=== PATIENT | male | born 1955 | race Caucasian/White ===

== ENCOUNTER 2024-02-14 07:41 | Day surgery (SDC) | payer MEDICARE, OTHER ==
[2024-02-14] MEDS ORDERED: MARCAINE 0.25% PF/ EPI 1:200,000 IJ ONE (07:42)
[2024-02-14] MEDS ORDERED: CEFAZOLIN 2 GM/100 ML NaCl 2 GM/100 ML IVPB IV ONE (07:50)
[2024-02-14] MEDS ORDERED: Lactated Ringers 1,000 ML IV ONE (07:51)
[2024-02-14] MEDS ORDERED: Decadron 4 MG ONE (07:51)
[2024-02-14] MEDS ORDERED: NEURONTIN ONE (07:51)
[2024-02-14] MEDS ORDERED: TYLENOL EXTRA STRENGTH 500 MG ONE (07:51)
[2024-02-14] MEDS ORDERED: celeBREX 100 MG ONE (07:51)
[2024-02-14] MEDS: CEFAZOLIN 2 GM/100 ML NaCl 2 GM/100 ML IVPB IV SCH (07:59)
[2024-02-14] MEDS: Lactated Ringers 1,000 ML IV SCH (07:59)
[2024-02-14] MEDS: NEURONTIN PO ONE (08:00)
[2024-02-14] MEDS: TYLENOL EXTRA STRENGTH 500 MG PO ONE (08:00)
[2024-02-14] MEDS: Decadron 4 MG PO ONE (08:00)
[2024-02-14] MEDS: celeBREX 100 MG PO ONE (08:01)
[2024-02-14 08:11] VITALS: RESP 16
[2024-02-14] MEDS ORDERED: Sensorcaine 0.25% 10 ML ONE (09:02)
[2024-02-14] MEDS ORDERED: MARCAINE 0.5%-EPI 1:200,000 VL IJ ONE (09:02)
[2024-02-14] MEDS ORDERED: ROCURONIUM BROMIDE IV ONE (09:57)
[2024-02-14] MEDS ORDERED: DIPRIVAN 200 MG/20 ML IV ONE (09:57)
[2024-02-14] MEDS ORDERED: Versed 2 MG/2 ML Injection ONE (09:58)
[2024-02-14] MEDS ORDERED: SUBLIMAZE 100 MCG/2 ML ONE (09:58)
[2024-02-14] MEDS ORDERED: BREVIBLOC 100 MG/10 ML IV ONE (10:16)
[2024-02-14] MEDS ORDERED: BRIDION 200MG/2ML IV ONE (10:56)
[2024-02-14] MEDS ORDERED: NORCO 5/325 MG ONE (12:26)
[2024-02-14] MEDS: NORCO 5/325 MG PO PRN (12:28)
[2024-02-14 12:49] VITALS: BP 137/87; PULSE 76; TEMP 97.8; O2SAT 96
--- NOTE | 2024-02-15 08:26 | OP ---
SURGERY DATE/TIME: 02/14/2024 0890 - 3120 PREOPERATIVE DIAGNOSIS: Torn right medial and lateral menisci. POSTOPERATIVE DIAGNOSIS: Torn right medial and lateral menisci. PROCEDURE: Arthroscopy of the right knee with partial medial and lateral meniscectomies. SURGEON: John Mcclellan II, ANESTHESIA: General. DESCRIPTION OF PROCEDURE AND FINDINGS: The patient was identified and informed consent was obtained. The patient was taken to the operative suite and placed into the supine position on the operating table where the general anesthetic was administered. Once an appropriate level of anesthesia had been obtained, a tourniquet was placed high on the right thigh. The right lower extremity was placed in a knee louie and prepped and draped in the usual sterile fashion. Following this, a standard time-out was taken. The leg was then exsanguinated and tourniquet elevated to 350 mmHg. A standard superomedial portal was created with an 11 blade. Trocar and cannula were placed in the joint. The joint was then distended with the arthroscopic pump. An inferolateral portal was created with an 11 blade and the arthroscope was then placed in through a cannula. An 18-gauge spinal needle identified the level for the inferomedial portal which was also created with an 11 blade. The knee was then inspected in a systematic fashion beginning in the suprapatellar pouch. There were no loose bodies or synovial hypertrophy in the suprapatellar pouch. The patella tracked nicely and seated well within the femoral groove at about 30 degrees of flexion. Very minimal grade 1 chondromalacia was noted on the patella. Gutters were inspected. No loose bodies or synovial hypertrophy. The scope was placed in the medial compartment where a complex tear involving the middle and posterior horns of the medial meniscus was encountered. These were resected with the handheld biting instruments and then shaved to a smooth transition with the shaver. No significant chondromalacia or degenerative changes were noted. The scope was placed in the intercondylar notch region where the anterior cruciate ligament was noted to be intact. Scope was placed in the lateral compartment where some degenerative fraying was noted to the lateral meniscus. Handheld biters were utilized to trim the frayed tissue and the edges were shaved with the shaver. Femoral condyle and tibial plateau were also noted to be intact. The knee was then reinspected and copiously irrigated. No further pathology was identified. The instrumentation was removed and the portal sites were closed with interrupted 4-0 nylon suture. The knee was infiltrated with 30 mL of 0.25% Marcaine with epinephrine. Adaptics, 4 x 4's, and a standard postop arthroscopy dressing applied. The patient was then transferred to the cart and taken to the recovery room in satisfactory condition, having tolerated the procedure well.
== END 2024-02-14 13:07 | disposition home or self-care (01) ==
LOC: SDC 07:41
PROVIDERS: ATTEND Orthopaedic Surgery
DX: S83.281A Other tear of lateral meniscus, current injury, right knee, initial encounter (principal); S83.241A Other tear of medial meniscus, current injury, right knee, initial encounter
CPT/HCPCS: 29880; J0690; J2250; J2704; J3010; A9270-GY